=== PATIENT | female | born 1985 | race Caucasian/White ===

== ENCOUNTER 2021-12-31 11:50 | Emergency (ER) | payer OTHER ==
[2021-12-31 12:20] LABS: HEMOGLOBIN 11.9 gm/dl (12.3-15.3); RED BLOOD COUNT 3.43 M/UL (4.00-5.10); WHITE BLOOD COUNT 4.6 K/UL (4.5-11.0)
[2021-12-31 12:50] LABS: BUN/CREATININE RATIO 11 (0-10)
== END 2021-12-31 15:48 | disposition home or self-care (01) ==
LOC: ER1 11:50
PROVIDERS: Nurse Practitioner
DX: R07.89 Other chest pain (principal); J44.9 Chronic obstructive pulmonary disease, unspecified; F17.210 Nicotine dependence, cigarettes, uncomplicated
CPT/HCPCS: 71045; 80053; 82550; 82553; 83735; 84100; 84484; 85025; 85379; 93005; 93242; 99285